=== PATIENT | male | born 1990 | race Hispanic/Latino ===

== ENCOUNTER 2020-01-27 12:08 | Emergency (ER) | payer OTHER, SELFPAY ==
[2020-01-27 12:09] VITALS: BP 140/73; PULSE 83; RESP 17; TEMP 36.5; O2SAT 99; BMI 25.9
--- NOTE | 2020-01-27 12:20 | ED.VIS.GEN ---
History of Present Illness Chief Complaint: Laceration Informant: Patient Onset: Today Context: Sudden Onset Timing: Continuous Current Severity: Moderate Maximum Severity: Moderate Narrative: The patient is an otherwise healthy 29-year-old male who presents to the emergency department with left leg laceration. Patient was at work. 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 He denies other injury. He is otherwise been in his normal state of health. He does think his tetanus is up-to-date. Prior similar symptoms: No Recent Illness/Hospitalization: No Past Medical History - Allergies and Home Meds Allergies/Adverse Reactions: Allergies No Known Allergies Allergy (Verified 01/27/20 12:08) Primary Care Physician: Devin Das [GROUP OF PHYSICIANS] - 10 Day for suture removal Prior records reviewed: Yes Past Medical History: None Surgical History: no surgical history Review of Systems General: Denies: Chills, Fever, Sweats Eyes: Denies: Visual changes - bilaterally, Diplopia ENT: Denies: Rhinorrhea, Sore throat Cardiovascular: Denies: Chest pain, Palpitations Respiratory: Denies: Dyspnea, Cough, Dyspnea on exertion Gastrointestinal: Denies: Abdominal pain, Nausea, Vomiting, Diarrhea, Melena, Hematochezia Genitourinary: Denies: Dysuria, Hematuria, Frequency Musculoskeletal: Denies: Back pain, Extremity Pain Skin: Denies: Rash, Wounds Neurological: Denies: Headache, Weakness, Numbness Physical Exam Vital Signs/Narrative: Vital Signs Temp Pulse Resp BP Pulse Ox 01/27/20 12:09 97.7 F L 83 17 140/73 H 99 Inital Vital Signs reviewed: Yes General: Well nourished, Well developed, No Acute Distress Head: Normocephalic, Atraumatic Eyes: Perrl, EOMI ENT: Moist mucous membranes, No rhinorrhea Neck: Supple, Nontender Cardiovascular: Regular rate, Regular rhythm, No murmurs Respiratory: No distress, CTA bilaterally, Chest nontender Abdomen: Soft, Nontender, Nondistended, Normal bowel sounds Back: Nontender, Normal Inspection Extremities: Nontender, No edema Skin: Normal color, - - 2 cm laceration medial aspect of left anterior black. Minimal bleeding. Neurological: Alert, Oriented x3, Cranial nerves II-XII grossly intact, Normal Strength, Normal Sensation Psychological: Normal affect, Normal Mood Diagnostic/Tx/Re-eval - Medical Decision Making The patient presents with laceration. The wound was anesthetized with 1% lidocaine. 4 cc were used. It was copiously irrigated and cleaned with chlorhexidine. Wound was closed with 5 simple interrupted 4-0 suture. He tolerated this without issue. Wound was dressed. The patient be discharged home. Impression 1. 2 cm left lower extremity laceration with repair ED Disposition - Plan for ED Patient: Disposition: Home or Assisted Living Instructions: ED Laceration All Closures Referrals: [facility] [GROUP OF PHYSICIANS] - 10 Day for suture removal
[2020-01-27 12:58] VITALS: BP 152/85; PULSE 78; RESP 14; O2SAT 98
--- NOTE | 2020-01-27 12:58 | ED.RN ---
pt was instructed to go from ed to [facility] care to continue [facility] evalutation and drug screen. stefania bledsoe rn [id number]
== END 2020-01-27 13:01 | disposition home or self-care (01) ==
LOC: ED 12:55
PROVIDERS: Emergency Provider Emergency Medicine
DX: S81.812A Laceration without foreign body, left lower leg, initial encounter (principal); W26.0XXA Contact with knife, initial encounter
CPT/HCPCS: 12001; 99285

== ENCOUNTER 2020-02-16 13:40 | Emergency (ER) | payer OTHER, SELFPAY ==
[2020-02-16 13:41] VITALS: BP 130/67; PULSE 87; RESP 16; TEMP 36.3; O2SAT 100; BMI 25.8
--- NOTE | 2020-02-16 14:23 | ED.VIS.GEN ---
History of Present Illness Chief Complaint: Wound Check Informant: Patient Onset: Days Context: Gradual Onset Timing: Continuous Current Severity: Mild Maximum Severity: Mild Narrative: Patient is a 29-year-old male who presents to the emergency department for wound evaluation. The patient was seen here 3 weeks ago. At that time, had a small laceration of his leg. It was repaired with suture. He states that he was never able to follow-up to get a sutures removed. He states for the past few days, is gotten mildly painful. There is been no drainage from it. He denies any fevers or chills. He has no history of immunosuppression. Prior similar symptoms: No Recent Illness/Hospitalization: No Past Medical History - Allergies and Home Meds Allergies/Adverse Reactions: Allergies No Known Allergies Allergy (Verified 02/16/20 13:44) Primary Care Physician: Care Physician,No Primary [Primary Care Provider] - Prior records reviewed: Yes Past Medical History: None Surgical History: no surgical history Smoking Status: Current some day smoker Review of Systems General: Denies: Chills, Fever, Sweats Eyes: Denies: Visual changes - bilaterally, Diplopia ENT: Denies: Rhinorrhea, Sore throat Cardiovascular: Denies: Chest pain, Palpitations Respiratory: Denies: Dyspnea, Cough, Dyspnea on exertion Gastrointestinal: Denies: Abdominal pain, Nausea, Vomiting, Diarrhea, Melena, Hematochezia Genitourinary: Denies: Dysuria, Hematuria, Frequency Musculoskeletal: Denies: Back pain, Extremity Pain Skin: Denies: Rash, Wounds Neurological: Denies: Headache, Weakness, Numbness Physical Exam Vital Signs/Narrative: Vital Signs Temp Pulse Resp BP Pulse Ox 02/16/20 13:41 97.4 F L 87 16 130/67 H 100 Inital Vital Signs reviewed: Yes General: Well nourished, Well developed, No Acute Distress Head: Normocephalic, Atraumatic Eyes: Perrl, EOMI ENT: Moist mucous membranes, No rhinorrhea Neck: Supple, Nontender Cardiovascular: Regular rate, Regular rhythm, No murmurs Respiratory: No distress, CTA bilaterally, Chest nontender Abdomen: Soft, Nontender, Nondistended, Normal bowel sounds Back: Nontender, Normal Inspection Extremities: No edema, Tenderness - The incision is intact. There is some scabbing over top sutures. There is minimal erythema of the wound edges. There is no purulence. Skin: Normal color, No rash Neurological: Alert, Oriented x3, Cranial nerves II-XII grossly intact, Normal Strength, Normal Sensation Psychological: Normal affect, Normal Mood Diagnostic/Tx/Re-eval - Medical Decision Making The wound was cleaned with hydrogen peroxide. 5 stitches were removed. There is a 0.5 cm area of dehiscence likely because of scab that had kept it from fully closing. Bacitracin dressing was applied. 1 Steri-Strip was used. There is no significant erythema of the wound margins. I do not suspect a deep space infection. The patient continue topical antibiotics. He was counseled on wound care and reasons to return. He will be discharged home. Impression 1. Delayed suture removal ED Disposition - Plan for ED Patient: Instructions: ED Sutr Check No Infec Referrals: Care Physician,No Primary [Primary Care Provider] -
== END 2020-02-16 14:56 | disposition home or self-care (01) ==
LOC: ED 14:51
PROVIDERS: Emergency Provider Emergency Medicine
DX: Z48.02 Encounter for removal of sutures (principal); F17.200 Nicotine dependence, unspecified, uncomplicated
CPT/HCPCS: 99282